=== PATIENT | male | born 1960 | race Hispanic/Latino ===

== ENCOUNTER 2017-12-06 13:25 | Emergency (ER) | payer MEDICAID ==
[~2017-12-06] VITALS: Ht 175.3 cm; Wt 72.6 kg
[~2017-12-06 13:25] MED LIST: ATIVAN2 MG PO; NKM
[2017-12-06] MEDS ORDERED: DiphenhydrAMINE 50mg/ml Inj IM ONE (14:30)
[2017-12-06] MEDS ORDERED: Haloperidol 5mg/ml Inj IM ONE (14:30)
[2017-12-06] MEDS ORDERED: LORazepam Inj 2mg/ml 1ml IM ONE (14:30)
[2017-12-06] MEDS ORDERED: LORazepam Inj 2mg/ml 1ml ONE (14:31)
[2017-12-06] MEDS ORDERED: Haloperidol 5mg/ml Inj ONE (14:31)
[2017-12-06 15:30] VITALS: BP 108/69
--- NOTE | 2017-12-06 16:26 | Diagnostic Imaging Report ---
EXAM: CT Head Without Intravenous Contrast CLINICAL HISTORY: AMS TECHNIQUE: Axial computed tomography images of the head/brain without intravenous contrast. CTDI is 70.38 mGy and DLP is 1393.46 mGy-cm. One or more of the following dose reduction techniques were used: automated exposure control, adjustment of the mA and/or kV according to patient size, use of iterative reconstruction technique. COMPARISON: No relevant prior studies available. FINDINGS: Brain: Right frontal and frontoparietal extra-axial hypodense collection measuring about 9.7 mm. 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 Subtle linear hyper densities in the right parietal, left parietal centrum semiovale white matter, has the appearance of chronic calcifications. Bilateral basal ganglia calcifications, likely physiologic. Midline shift: No midline shift. Ventricles: Unremarkable. No ventriculomegaly. Bones/joints: Unremarkable. No acute fracture. Soft tissues: Mild right frontal scalp soft tissue swelling. Sinuses: Unremarkable as visualized. No acute sinusitis. Mastoid air cells: Unremarkable as visualized. No mastoid effusion. Other findings: Mild generalized atrophy. IMPRESSION: 1. Mild right frontal scalp soft tissue swelling. No skull fracture. 2. No acute intracranial abnormality. 3. Right frontal and frontoparietal extra-axial hypodense collection measuring about 9.7 mm. 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 4. Subtle linear hyper densities in the right parietal, left parietal centrum semiovale white matter, has the appearance of chronic calcifications. [employer] 12/06/17 16:22 Call Doctor Regarding Above results, called Macey ERICKSON on 12/06 16:21 (-07:00)
--- NOTE | 2017-12-07 01:19 | Emergency Room Report ---
Physical Exam Vital Signs Date Time Temp Pulse Resp B/P (MAP) Pulse Ox O2 Delivery O2 Flow Rate FiO2 12/06/17 13:18 20 96/59 99 Room Air 12/06/17 15:30 88 Medical Decision Making Diagnostic Impression: Primary Impression: Acute alcoholic intoxication Qualified Codes: F10.929 - Alcohol use, unspecified with intoxication, unspecified ER Course Patient signout to me. He presents with agitation secondary to alcohol intoxication. Been sleeping through the night. Now is awake and name to give his name. We'll discharge in the morning. Last Vital Signs Date Time Temp Pulse Resp B/P (MAP) Pulse Ox O2 Delivery O2 Flow Rate FiO2 12/06/17 15:30 88 17 108/69 100 Room Air Status: improved Disposition: HOME, SELF-CARE Condition: Stable Referrals: NOT CHOSEN IPA/,REFERRING (PCP) Patient Instructions: Alcohol Intoxication, [id number] Additional Instructions: follow-up your doctor in 7 days. Abstain from alcohol. Return if worse. BONI LUONG M.D. Dec 07, 2017 01:19
[2017-12-07 04:07] VITALS: BP 108/69
--- NOTE | 2017-12-07 07:43 | Emergency Room Report ---
History of Present Illness General Chief Complaint: Alcohol Intoxication Source: EMS Present Illness HPI Patient is a 57-year-old male brought in by EMS after increased altered mental status. Patient was found lying on the street. Patient states he was drinking alcohol. History is markedly limited by patient's alteration of mental status. He denies any pain. Allergies: Coded Allergies: UNABLE TO ASSESS (Unverified , 12/06/17) Patient History Past Medical History: see triage record Reviewed Nursing Documentation: PMH: Agreed; PSxH: Agreed Nursing Documentation-PMH Past Medical History Deferred: Pt Cognitively Impaired Review of Systems All Other Systems: limited - by mental status Physical Exam Vital Signs Date Time Temp Pulse Resp B/P (MAP) Pulse Ox O2 Delivery O2 Flow Rate FiO2 12/06/17 13:18 20 96/59 99 Room Air 12/06/17 15:30 88 Sp02 EP Interpretation: normal General Appearance: alert, non-toxic, Chronically Ill Head: normocephalic, other - right forehead abrasion with scabbing Eyes: bilateral eye PERRL Neck: limited range of motion Respiratory: lungs clear, normal breath sounds, no rhonchi Cardiovascular #1: regular rate, rhythm, no edema, no gallop, no JVD Gastrointestinal: normal bowel sounds, soft Rectal: deferred Genitourinary: no CVA tenderness Musculoskeletal: normal inspection, normal range of motion Neurologic: alert, other - ataxia, slurred speech Psychiatric: other - agitated Skin: other - forehead abrasion Medical Decision Making Diagnostic Impression: Primary Impression: Acute alcoholic intoxication ER Course Patient presented for altered mental status. Differential diagnosis included but was not limited to alcohol intoxication, substance abuse, ischemic stroke, subarachnoid hemorrhage, hypoglycemia, spinal cord injury, neurodegenerative disorder, urinary tract infection, hypoxemia. CT imaging of the head was ordered due to patient's apparent previous head trauma to evaluate evaluate for possible subdural hematoma. The patient was endorsed to Dr. Choudhury the pending CT results. Last Vital Signs Date Time Temp Pulse Resp B/P (MAP) Pulse Ox O2 Delivery O2 Flow Rate FiO2 12/07/17 04:07 17 108/69 100 Room Air 12/06/17 15:30 88 Status: unchanged Disposition: HOME, SELF-CARE Condition: Stable Referrals: NOT CHOSEN IPA/MD,REFERRING (PCP) Patient Instructions: Alcohol Intoxication, [id number] Additional Instructions: follow-up your doctor in 7 days. Abstain from alcohol. Return if worse. Bill Cole MD Dec 07, 2017 07:43
== END 2017-12-07 04:09 | disposition home or self-care (01) ==
LOC: EDBD 13:25 → MERGE 13:59 → EDBD 13:59 → EMR 13:59
DX: F10.929 Alcohol use, unspecified with intoxication, unspecified (principal)
CPT/HCPCS: 70450; 96372; 99283; J1200; J1630